=== PATIENT | male | born 1965 | race Caucasian/White ===

== ENCOUNTER 2017-02-06 20:08 | Emergency (ER) | payer OTHER ==
[~2017-02-06] VITALS: Ht 170.2 cm; Wt 97.1 kg
[~2017-02-06 20:08] MED LIST: ASPI-621 PO; ATOR-2 PO; Clopidogrel Bisulfate PO; MAGN400T36 PO; METO25TA35 PO; MULT-717 PO; NITR0.4T28 SL; THYR300T PO
[2017-02-06 20:13] VITALS: BP 165/89
[2017-02-06] MEDS ORDERED: LIDOCAINE 1%, 20ML SQ ONE (20:30)
[2017-02-06] MEDS ORDERED: DIPH,PERTUSS(ACELL),TET VAC/PF 0.5 ML IM-VACC ONE ×2 (20:30→21:03)
[2017-02-06] MEDS ORDERED: LIDOCAINE 1%, 20ML ONE (21:03)
[2017-02-06] MEDS ORDERED: BACITRACIN ZINC OINT 500U/GM, 0.9 GM ONE (22:48)
== END 2017-02-06 23:04 | disposition home or self-care (01) ==
LOC: ED 22:58
DX: S61.215A Laceration without foreign body of left ring finger without damage to nail, initial encounter (principal); E03.9 Hypothyroidism, unspecified; W26.0XXA Contact with knife, initial encounter; Y93.89 Activity, other specified; Y92.009 Unspecified place in unspecified non-institutional (private) residence as the place of occurrence of the external cause; Y99.9 Unspecified external cause status
CPT/HCPCS: 12002; 90471; 90715; 99283; J3490